=== PATIENT | female | born 1985 | race Caucasian/White ===

== ENCOUNTER 2024-01-08 00:40 | Day surgery (SDC) | payer OTHER, SELFPAY ==
[2023-12-27 09:39] VITALS: BMI 24.4
--- NOTE | 2023-12-27 09:47 | PC.NURSE ---
Report to the Outpatient Waiting Room, entrance under the green pavilion located off [facility], at time 10:30am on date 01-08-24. Planned Procedure Time: 12:30pm. Time changes happen often and if your time is changed the preop area will call you the afternoon before. - You and your visitor will be asked to self-screen and do not enter if you have any COVID symptoms. - A mask is optional within the hospital at this time. Patients may have clear liquids (water, carbonated beverages, clear teas, apple juice) until 3 hours prior to surgery (09:30am) with a maximum of 20 ounces. - No food from midnight until time of surgery Take the following medications with a SIP of water the morning of surgery: n/a DO NOT STOP ANY OF YOUR OTHER PRESCRIPTION MEDICATIONS PRIOR TO SURGERY ?EXCEPT THE FOLLOWING Medications to discontinue per physician n/a Please no make-up, nail cuban, hairspray, perfume, deodorant, or body powder the day of surgery. No jewelry (including any body piercings) or valuables the day of surgery, leave them at home. Please take a shower or bath the night before, or the morning of, surgery with an antibacterial soap. Wear comfortable, loose fitting clothing. - Jewelry must be removed prior to entering the operating room. Rings and piercings that are not removed may be cut off. - The hospital will not accept responsibility for valuables. - Please leave all valuables, including medications, at home the day of surgery. If you are going home after surgery, a licensed fire truck driver must drive you home. - NO public transportation without another adult if you receive anesthesia. - We recommend that an adult stay with you for 24 hours following discharge. - We also recommend that you do not drive, make important decision, drink alcoholic beverages, or take any drugs that were not prescribed by your health care provider for at least 24 hours after your discharge time. Follow any additional instructions given to you from your surgeon. If you or anyone in your household have experienced Covid symptoms in the past week, please notify your surgeon or the nurse liaison at the phone number below for possible testing. Telephone instructions given to PATIENT and asked if any additional questions and then verbalized understanding. Patient advised to call surgeon office or pre surgery nurse liaison [phone] if any additional questions.
--- NOTE | 2024-01-07 20:24 | PM.IMHP ---
H&P: HPI History of Present Illness Date/Time: 01/07/24 20:24 Chief Complaint: AUB Narrative: Nivia is a 38yo P2002, who presents for surgical intervention for AUB. She is currently on OCPs continuously and has a cycle every 3 months. She reports when she has a cycle, they are still very heavy with large blood clots. They have been this way for the last couple cycles. She has friends who have ablations and she's wondering about that. No pelvic pain. Blood work and US were normal 10/2023. is getting vasectomy; has appt 12/31/23. EMB was performed in office and was benign. Review of Systems Constitutional: Constitutional: Denies chills, Denies fever(s) and Denies headache(s) Eyes: Eyes: Denies change in vision ENT: Denies dizziness and Denies headache(s) Cardiovascular: Cardiovascular: Denies chest pain and Denies dyspnea Respiratory: Respiratory: Denies cough and Denies dyspnea Gastrointestinal: Gastrointestinal: Denies abdominal pain and Denies change in stool character Genitourinary: Genitourinary: Denies abnormal menses, Reports menorrhagia, Denies pelvic pain, Denies vaginal discharge, Denies vaginal odor and Denies vaginal pruritus Neurologic: Denies dizziness and Denies headache(s) Psychiatric: Psychiatric: Denies anxiety and Denies depression [facility] Family History Family History (Updated 10/31/23 @ 15:49 by Linda Ocampo MA) Grandparent Breast cancer Father Bladder cancer Mother Song's disease Social History Social History (Updated 10/31/23 @ 15:50 by Linda Ocampo MA) Smoking status: Never smoker Second hand tobacco smoke exposure: No Alcohol intake: current Drinks per week: 3 Alcohol use details: socially Substance use: never Substance use type: does not use Current Housing: Decline to Answer Concerned About Future Housing: Decline to Answer Difficulty Paying Gas/Electric Bills: Decline to Answer Difficulty Paying for Meds: Decline to Answer Currently Unemployed: Decline to Answer Education: Decline to Answer Difficulty w/ Childcare or Family Care: Decline to Answer Living arrangements: with family Occupation/Education: occupation Gender identity (if verbalized by the patient): Female Sexual Orientation (if Verbalized by the Patient): Straight or Heterosexual Meds Home Medications and Allergies Home Medications Medication Instructions Recorded Confirmed Type Daysee 0.15 mg-30 mcg (84)/10 See Rx Instructions PO .COMPLEX 10/31/23 12/27/23 Rx mcg(7) tablets,3 month dose pack #91 ea (L norgest/e.estradiol-e.estrad) dextroamphetamine-amphetamine ER 20 mg PO QAM PRN adhd 10/31/23 12/27/23 History 20 mg 24hr capsule,extend release spironolactone 50 mg tablet 50 mg PO DAILY PRN Acne 10/31/23 12/27/23 History Allergies Allergy/AdvReac Type Severity Reaction Status Date / Time No Known Allergies Allergy Verified 12/27/23 09:41 Exam Const: General: cooperative, healthy appearing, comfortable and no acute distress Orientation/consciousness: patient oriented x3 Resp: Effort & Inspection: normal respiratory effort Cardio: Rate: regular rate GI: Inspection: normal to inspection GI Palp: No abdominal tenderness and Yes Soft to palpation : Other: deferred to OR Skin: General skin exam: normal color Neuro: General: patient oriented x3 Extrem: General: normal to inspection Psych: Appearance: grossly normal Affect: normal affect Attitude: cooperative Assessment and Plan Assessment and plan (1) Menorrhagia: Code(s): N92.0 - Excessive and frequent menstruation with regular cycle Status: Acute Plan - EMB, labs, US all normal - Pt would like to proceed with HSC/D&C/Brooke ablation - Risks and benefits discussed in detail
[2024-01-08] VITALS (18 sets, daily range): BP systolic 132–160; BP diastolic 82–99; PULSE 78–100; RESP 12–20; TEMP 37–37.3; O2SAT 98–100; BMI 24.0
--- NOTE | 2024-01-08 06:44 | WPDHPUPDATE1 ---
History and Physical Update Update Date/Time: 01/08/24 06:44 History and Physical has been reviewed, including an updated exam of the patient. There are NO changes in the patient's condition. Risks, benefits, and alternatives have been discussed and questions answered. Patient agrees to proceed with Hysteroscopy with D&C and Brooke ablation.
[2024-01-08] MEDS: LACTATED RINGERS 1,000 ML 30 ML IV CONT ×2 (10:15→12:49)
[2024-01-08] MEDS: ACETAMINOPHEN 500 MG TABLET 1000 MG PO (10:18)
--- NOTE | 2024-01-08 11:01 | WPDANESEPPF ---
Anes - Initial Pre Proc Eval Procedure: Operation Date: 01/08/24 11:30 Proposed Procedures p Hysteroscopy Dilation and Curettage with Brooke Endometrial Ablation - Erma Tam MD Date/Time: 01/08/24 11:01 Surgeon: Erma Tam MD Pre Op Diagnosis: abnormal uterine bleeding Patient Data Age: 38 Gender: F Height: 1.75 m Weight: 73.75 kg Last Vital Signs Temp 98.9 F 01/08/24 09:25 Pulse 93 01/08/24 09:25 Resp 14 01/08/24 09:25 BP 160/91 H 01/08/24 09:25 Pulse Ox 100 01/08/24 09:25 O2 Del Method Room Air 01/08/24 09:25 Allergies Allergy/AdvReac Type Severity Reaction Status Date / Time No Known Allergies Allergy Verified 01/08/24 10:11 Home Medications Medication Instructions Recorded Confirmed Type Daysee 0.15 mg-30 mcg (84)/10 See Rx Instructions PO .COMPLEX 10/31/23 12/27/23 Rx mcg(7) tablets,3 month dose pack #91 ea (L norgest/e.estradiol-e.estrad) dextroamphetamine-amphetamine ER 20 mg PO QAM PRN adhd 10/31/23 12/27/23 History 20 mg 24hr capsule,extend release spironolactone 50 mg tablet 50 mg PO DAILY PRN Acne 10/31/23 12/27/23 History Patient hx anesthesia problems: none Family hx anesthesia problems: none Results Review: All pre-operative results and documents have been reviewed as part of the pre-operative evaluation. [facility] Family History Family History Grandparent Breast cancer Father Bladder cancer Mother Song's disease Social History Social History Smoking status: Never smoker Second hand tobacco smoke exposure: No Alcohol intake: current Drinks per week: 3 Alcohol use details: socially Substance use: never Substance use type: does not use Current Housing: Decline to Answer Concerned About Future Housing: Decline to Answer Difficulty Paying Gas/Electric Bills: Decline to Answer Difficulty Paying for Meds: Decline to Answer Currently Unemployed: Decline to Answer Education: Decline to Answer Difficulty w/ Childcare or Family Care: Decline to Answer Living arrangements: with family Occupation/Education: occupation Gender identity (if verbalized by the patient): Female Sexual Orientation (if Verbalized by the Patient): Straight or Heterosexual Anes - Eval Final PreProcedure Day of Procedure 01/08/24 11:01 Patient weight: normal Heart: regular rate and rhythm Lungs: clear to auscultation Airway: Mallampati scale class 1 Neurological: alert and oriented Last oral intake: >/= 8 hours ASA classification: I Emergent: no Anesthetic plan: proceed Anesthesia type and monitoring: general GIVS and standard monitoring Results Review: All pre-operative results and documents have been reviewed as part of the pre-operative evaluation. Pt active w walking outside, no cp or sob. Informed Consent: The patient's anesthetic plan and its attendant risks and benefits were discussed with the patient/family/POA. Questions were solicited and answers provided to the satisfaction of the patient/family/POA.
[2024-01-08] MEDS: ceFAZolin SODIUM 1 GM VIAL 2 GM IV PUSH (11:50)
--- NOTE | 2024-01-08 11:56 | W.PM.PROC2 ---
Procedure Note - Detailed Date of Procedure 01/08/24 Pre-op Diagnosis abnormal uterine bleeding Post-op Diagnosis Same Procedure Performed Hysteroscopy with D&C Surgeon Erma Tam MD Anesthesia MAC Findings Uterus sounded to 8cm. Hysteroscopy performed without issues; thickened fluffy tissue throughout cavity noted; bilateral tubal ostia visualized. D&C performed without issues. Once Brooke device was placed, loss of resistance was noted. Device was removed immediately and hysteroscopy confirmed perforation; fluid deficit of 460cc (100cc from the first look). Vitals stable, no bleeding was noted from the os. CBC sent intra-op, will plan to monitor for at least 4 hours and repeat CBC. Description of Procedure Nivia was taken to the operating room where she was placed under sedation without complications. She was then prepped and draped in the usual sterile fashion in the dorsal lithotomy position with her legs in low Adin stirrups. A time-out was performed and no perioperative antibiotics were indicated. A bivalve speculum was placed within the vagina where the cervix was easily identified. The anterior lip of the cervix was grasped with a single-tooth tenaculum. The uterus was sounded to 8cm. The cervix was then serially dilated to allow for the hysteroscope. The hysteroscope was advanced into the uterine cavity with the above findings noted. A curettage was then performed until a good uterine cry was felt throughout the uterus. The Brooke endometrial ablation device was then placed within the endometrial cavity; set to 4cm. Loss of resistance was immediately felt and the device was removed. The hysteroscope was then placed back into the cavity; no bleeding was noted but a uterine perforation was noted. She was monitored in the OR, her vitals remained stable, no bleeding was noted. She was given a dose of Ancef 2g IV once. A CBC was sent intra-op. Will plan to monitor vitals/symptoms very closely for the next 4 hours and repeat CBC. Good hemostasis was noted. All instruments were removed from the vagina. Sponge, lap, instrument, and needle counts were correct at the end of the procedure. Patient was awoken from anesthesia and taken to recovery. Estimated Blood Loss 10 IV Fluids 800 Pathology Yes (Endometrial curettings) Complications Other complications (uterine perforation; loss of resistance when opening the Brooke device; no ablation performed) Condition Stable Disposition Observation [facility] [place] Billing Surgery - Charge Forward: Surgery Billing
[2024-01-08 12:03] LABS: Hematocrit 39.7 % (37.0-47.0); Mean Corpuscular HGB Conc 32.7 g/dl (32-36); Mean Corpuscular Hemoglobin 29.2 pg (26-34); Mean Corpuscular Volume 89.2 fl (80-100); Mean Platelet Volume 11.6 fl (7.4-10.4); Platelet Count Result 272 k/mm3 (150-375); Red Blood Count 4.45 M/mm3 (4.2-5.4); Red Cell Distribution Width 12.3 % (11.5-14.5); White Blood Count 8.7 K/mm3 (4.5-10.0)
[2024-01-08 15:14] LABS: Hematocrit 46.3 % (37.0-47.0); Hemoglobin 15.3 g/dL (12.0-15.0); Mean Corpuscular Hemoglobin 29.3 pg (26-34); Mean Corpuscular Volume 88.5 fl (80-100); Mean Platelet Volume 11.4 fl (7.4-10.4); Platelet Count Result 293 k/mm3 (150-375); Red Blood Count 5.23 M/mm3 (4.2-5.4); Red Cell Distribution Width 12.3 % (11.5-14.5); White Blood Count 9.5 K/mm3 (4.5-10.0)
--- NOTE | 2024-01-08 15:33 | SUR.PHASEI ---
Dr Tam to bedside at 1440. Per Dr. Tam patient okay to get up and go to bathroom and be discharged once 1500 CBC results, as long as WNL. Dr Tam would like to be notified of results. Dr. Tam notified by this RN at 1525 of results of CBC. Per Dr Tam okay for patient to d/c as long as patient can void before leaving.
--- NOTE | 2024-01-08 15:40 | SUR.PHASEII ---
Pt. ambulated to bathroom and voided 650mL clear yellow urine. MD Tam notified. Pt. ok to discharge home per MD - telemetry monitoring also no longer needed.
== END 2024-01-08 16:11 | disposition home or self-care (01) ==
PROVIDERS: PCP Family Medicine; Visit Provider Obstetrics & Gynecology
PROC: 0U5B8ZZ Destruction of Endometrium, Via Natural or Artificial Opening Endoscopic (ICD-10-PCS; CPT 58563; principal; 2024-01-08 11:30)
DX: N92.0 Excessive and frequent menstruation with regular cycle (principal); N99.71 Accidental puncture and laceration of a genitourinary system organ or structure during a genitourinary system procedure; Z53.8 Procedure and treatment not carried out for other reasons
CPT/HCPCS: 58563; 36415; 85027; 88305; A9270; J0690; J2250; J2405; J2704; J3010; J7120